=== PATIENT | female | born 1955 | race Caucasian/White ===

== ENCOUNTER → 2020-03-14 11:34 | Outpatient (CLI) | payer OTHER, SELFPAY ==
[2020-03-15 06:30] LABS: COVID19 Sendout Not Detected (Not Detect)
== END ==
PROVIDERS: PCP Family Medicine; Visit Provider Physician Assistant
DX: Z01.812 Encounter for preprocedural laboratory examination (principal)
CPT/HCPCS: 87635

== ENCOUNTER 2020-03-17 05:45 | Inpatient (IN) | payer OTHER, SELFPAY ==
[2020-03-08 11:39] VITALS: BMI 40.7
[2020-03-17] VITALS (14 sets, daily range): BP systolic 120–164; BP diastolic 62–87; PULSE 72–104; RESP 10–21; TEMP 35.8–36.7; O2SAT 90–99; BMI 40.7
[2020-03-17] MEDS: LACTATED RINGERS 1,000 ML 42 ML IV ×2 (07:16→10:18)
--- NOTE | 2020-03-17 07:56 | PM.PREOP ---
Pre-operative Note COVID-19 COVID-19 status: Negative Result date/Date tested (Pos, Neg/Pending): 03/15/20 Interval Note History & Physical reviewed/Exam performed by Physician: Yes Changes to H&P: No
[2020-03-17] MEDS: CEFAZOLIN 2 GM/100 ML FROZ.PIGGY IV ×2 (08:00→15:39)
--- NOTE | 2020-03-17 08:00 | DI.RAD.S_ITS ---
PROCEDURE: XR CERVICAL SPINE 2V OR 3V INDICATIONS: C3-4, C4-5, C5-6 ACDF TECHNIQUE: 2 view(s) of the cervical spine were acquired. COMPARISON: None. FINDINGS: 2 intraoperative fluoroscopy images demonstrate ACDF at C3-C4, C4-C5 and C5-C6. IMPRESSION: ACDF at C3-C4, C4-C5 and C5-C6. Dictated by: Camron Blake M.D. on 03/17/2020 at 11:39 Approved by: Camron Blake M.D. on 03/17/2020 at 11:40
[2020-03-17] MEDS: ACETAMINOPHEN IV 1,000 MG/100 ML VIAL 400 MG IV (08:20)
--- NOTE | 2020-03-17 08:37 | SUR.OPER ---
Supine on padded OR bed, head on gel donut, towel under neck, arm padded and tucked at side, legs uncrossed, safety belt at thigh, tape over blanket over lower legs .
[2020-03-17] MEDS: BUPIVACAINE 0.25% W/ EPI 30 ML VIAL INJ (08:47)
--- NOTE | 2020-03-17 08:55 | CM.DANOTE ---
Discharge Planning/Care Management DCP: assessment: Case received, EMR reviewed. Went to room to check in with pt but she is still in surgery. Pt is a 64 year old female who admitted early this morning for a scheduled spinal/cervical surgery. Surgeon: Dr. Schmid PCP: Keith Samano Payer: [employer] Preferred Pt lives with her Abelardo in [place]. Her pre-op plan was identified as d/c to home. P: DCP team will follow up with pt after surgery to assist with any d/c needs that may arise. CM Discharge Assessment Start: 03/17/20 08:54 Freq: Status: Active Protocol: Document 03/17/20 08:54 ITV (Rec: 03/17/20 08:55 ITV [id number]) Discharge Planning Assessment Advance Directives? Yes History Provided By Medical Record Prior Living Arrangements House Household Members spouse Is patient alert and oriented? Yes Review Status In Process Pre-Anesthesia Assessment Start: 03/08/20 11:39 Freq: Status: Active Protocol: Document 03/08/20 11:39 CAB (Rec: 03/08/20 12:38 CAB [id number]) Pre-Anesthesia Assessment Patient Information Reviewed Via Phone Assessment Assessment Completed With Patient Diagnostic Results CBC Comment Outside CBC only scanned to record-COVID screen @[facility] Primary Care Provider Keith Samano Seen Specialist in Last 12 Months Yes Specialist Seen Orthopedist,Other Comment Pain management, Neurology Primary Language Romansh Height 160.02 cm Weight 104.326 kg Body Mass Index (BMI) 40.7 Hearing Ability Normal Visual Assist Glasses Dentition Type Teeth, Natural Present Barriers to Learning None Hx Anesthesia Reactions Yes: Trouble keeping me sedated, I wake up during surgeries Hx Family Anesthesia Reaction No Hx Malignant Hyperthermia No Hx Blood Transfusions No Anesthesia Review Requested No alcohol intake current alcohol intake frequency holidays/special occasions only Smoking Status Never smoker Substance Use Type does not use Pain Present Pain Reported Musculoskeletal Symptoms Limited Range of Motion,Neck Pain,Radiating Pain into Limb History of Falling (Recent or History of No ) Patient is completely paralyzed or No completely immobile Mental Status Oriented to own ability Is patient on oxygen? No Does patient have OROZCO/SOB No Hx Sleep Apnea No Currently Taking a Beta Miracle No Can You Climb a Flight of Stairs Without Yes SOB Hx Chest Pain No Hx SOB No Hx Syncope or Dizziness No Anti-Coagulant Therapy No Has a Bottling Machine Operator No Cardiac Testing No Hx Pacemaker/ICD No Pacemaker Rep Required? No Cardiac Clearance Received Not Applicable Diet Type At Home Regular dysphagia No Bladder Pattern Frequency,Incontinent,Urgency Urinary Catheter Present No Hx Urinary Self Catheterization No Diabetes No Patient No Lactating No Hx Drug Resistant Organism No Presence of External or Internal Medical Yes: Bilat eye lens Devices Have you had any close contact with No someone diagnosed with COVID-19? Marital Status Lives With spouse Prior Living Arrangements House Support System Spouse Does the Patient Have Assistance After Yes Surgery Patient Discharge Plan Description Return Home Comment Pt not advised on length of stay per surgeon Feels Safe in Current Environment Yes Been Physically Hurt or Threatened By a No Person in Current Environment Do you have thoughts of harming yourself None or others? Are you currently considering suicide? No Do you have a plan to hurt yourself or No Plan others? Do You Have Any Spiritual Beliefs That No May Affect Your HC Choices? Do You Have Any Cultural Practices That No May Affect Your HC Choices? Comment Quaker Who Can We Speak to About Patient's Care Family, friends Identifying Code for Release of Patient Declines to issue Information Health Care Proxy/Next of Kin Abelardo () Health Care Proxy Emergency Contact Name Abelardo () Amilcar (son) Emergency Contact Phone Number Ray: [phone] Amilcar: Advance Directives? Pt unsure Power of Conveyor Attendant Pt unsure PAC Instructions Medications to take/avoid, Nasal antibiotic,No ETOH/ petroleum product on skin DOS, NPO,Pre-surgical wash,Sturdy shoes/comfortable clothes,Do not bring valuables and remove jewelry
--- NOTE | 2020-03-17 11:01 | PM.OP.1 ---
Operative Date/Time/Diagnoses Date of procedure: 03/17/20 Time of procedure: 08:01 Pre-op diagnosis: 1. C3-4, C4-5, C5-6 spinal stenosis 2. C3-4, C4-5, C5-6 spondylosis with radiculopathy Post-op diagnosis: same Procedure & Clinicians Procedure: 1. C3-4, C4-5, C5-6 anterior cervical diskectomy and fusion 2. C3-4, C4-5, C5-6 anterior interbody cage placement 3. C3-4, C4-5, C5-6 anterior instrumentation with plate and screw placement in C3, C4-C5-C6 vertebrae 4. Utilization of microsurgical technique and operating microscope Same procedure as scheduled: Yes Indications: Patient has been having chronic neck pain and worsening cervical radiculopathy. Patient failed multiple conservative management with worsening pain weakness and numbness in her upper extremity. Patient has been having difficulty performing activity of daily living. After discussing risks benefits of treatment options, patient elected proceed with surgery. Surgeon: Benedicto Schmid Powerhouse Electrician Apprentice: Krystle Khalil Click Yes if Unassisted: No Anesthesia Type: General Operative Notes Closure Type: primary Specimen(s): none sent Prosthetic devices, grafts, tissues, transplants, or devices: Globus Extend plate, PEEK cages Applied: catheter Estimated Blood Loss (mL): 10 Blood products transfused: none Procedure in detail: Patient was seen in the preoperative area. Risks and benefits of the surgery was discussed with the patient. Operative consent was obtained and placed in the chart. Patient was then taken to the operative room. Prophylactic antibiotic was given less than 0.5 hr prior to skin incision. General anesthesia was administered. Patient was placed into a supine position on her radiolucent table. Bilateral shoulders were taped down to allow proper C-arm imaging. Anterior cervical area was prepped and draped in a sterile fashion. Time-out was performed at this time. Using lateral C-arm imaging, the level between C3 and C6 was identified and marked on patient's neck. A oblique incision from midline towards medial border of sternocleidomastoid muscle was made. The platysma muscle was incised in line with skin incision. Metzenbaum scissor was used to develop the plane between the medial border of sternocleidomastoid d and the strap muscles medially. The carotid sheath and its contents were identified and protected behind the hand-held retractor during the entire case. The plane between the carotid sheath and strap muscles was developed with Metzenbaum scissors. Dissection was made down to the level of the anterior cervical fascia. Longus colli muscle was incised on the anterior aspect of vertebral bodies bilaterally from C3-C6. Spinal needle was placed into the C3-4 disc space and confirmed with lateral C-arm imaging. Using microsurgical technique and operative microscope, anterior cervical diskectomy was performed at C3-4 C4-5 and C5-6 level. This was done by removing the disc material, removing the anterior and posterior osteophytes posterior longitudinal ligaments along with performing bilateral foraminotomies at all 3 levels. Patient was found to have severe central and foraminal stenosis at all 3 levels. Patient's stenosis was fully decompressed after decompression was completed. After the diskectomy was completed, 3 anterior interbody cages were obtained. The cages were packed with DBM bone grafting material. One cage each along with the bone grafting material was then packed into the interbody spaces from C3-C6 with one cage into each interbody level. After the cages were placed, the anterior cervical plate was stabilized to the C3-C6 vertebrae using 2 screws at each each level. Total 8 screws were placed. After confirming placement of the hardware with AP and lateral C-arm imaging, the screws were locked into the plate using the locking mechanism and torque limiting screwdriver. After the hardware was placed and confirmed with AP and lateral C-arm imaging, the wound was irrigated with sterile normal saline. The platysma muscle and the subcutaneous tissue was closed with 2-0 Vicryl. The skin was closed with 4-0 Monocryl and Steri-Strips. Patient tolerated the procedure well. Patient was transferred recovery room in stable condition. There were no complications. Complications: none Post-operative Condition: stable Disposition: PACU Plan for aftercare: Admit to inpatient hospital
[2020-03-17] MEDS: fentaNYL 100 MCG/2 ML INJ IV ×3 (11:34→11:57)
--- NOTE | 2020-03-17 11:44 | SUR.PHASEI ---
Addendum entered by Frances Elizabeth R.N. 03/17/20 12:21: 1125 Bilateral psychology lecturer strength strong and equal Original Note: 1120 HR irregular, anesthesia record noted stable since ablation. Parker RN attempted to show anesthesia, but was not in the department. left message. HR mostly regularly irregular. 1125 Aroused spontaneously, airway removed. Pt denies pain or nausea. HOB elevated, ice chips given 1134 medicated for pain, patient repeating 'my neck, it hurts' 1140 Anesthesia paged, showed him the rhythm strip. No orders given based on previous history 1142 Pt states that the pain is improved, but still complaining of pain (less frequent complaints). did not give number when asked 1150 dozing quietly. Reponds easily to voice.
[2020-03-17] MEDS: OXYCODONE IR 5 MG TABLET PO (12:00)
[2020-03-17] MEDS: hydrOXYzine 50 MG/ML INJ 25 MG IM (12:04)
--- NOTE | 2020-03-17 12:13 | SUR.PHASEI ---
rates pain 9/10 although FLACC score does not reflect it. Does not respond to question regarding pain level change. repositioned for comfort
--- NOTE | 2020-03-17 12:23 | SUR.PHASEI ---
Addendum entered by Frances Elizabeth R.N. 03/17/20 12:49: Strong mottler operator and LE strength. Original Note: 1120 report called to floor. pt continues to moan, she is not restless, fLACC 11/25
--- NOTE | 2020-03-17 12:31 | SUR.PHASEI ---
preparing to transfer, glasses and clothing bag with patient.
--- NOTE | 2020-03-17 12:46 | SUR.PHASEI ---
1236 to room 210, bed down and locked, call light within reach, clothing/glasses to the room. O2 at 2LNP, SCDs being put on by TECHNICIAN PREVENTATIVE MEDICINE. Continues to moan, status unchanged. Reponsive to voice, barely open eyes when asked to. Requested staff to notify the that she is in the room.
[2020-03-17] MEDS: SODIUM CHLORIDE 0.9% 1,000 ML 100 ML IV (13:06)
[2020-03-17] MEDS: GABAPENTIN 300 MG CAPSULE PO ×2 (13:06→20:17)
[2020-03-17] MEDS: HYDROMORPHONE 0.5 MG INJ 0.2 MG IV ×2 (13:10→20:01)
[2020-03-17] MEDS: OXYCODONE IR 10 MG TABLET PO ×3 (13:19→21:04)
--- NOTE | 2020-03-17 13:28 | PC.ADMIT ---
[email or web address] Admission Note: The patient,Madyson Martinez,64 y/o, was given written information regarding hospital policies, unit procedures and contact persons. Patient's smoking status: Never smoker. Vital Signs - 8 hr 03/17/20 07:00 03/17/20 11:12 03/17/20 11:23 Temperature 96.4 F L 97.8 F Pulse Rate 72 92 H 104 H Respiratory Rate 16 10 L 11 L Blood Pressure 143/81 H 138/68 150/63 H Pulse Oximetry 96 90 L 95 03/17/20 11:33 03/17/20 11:43 03/17/20 11:53 Temperature 97.7 F Pulse Rate 99 H 94 H 94 H Respiratory Rate 10 L 12 12 Blood Pressure 143/69 H 147/75 H 123/62 Pulse Oximetry 95 95 95 03/17/20 12:07 03/17/20 12:22 Temperature 96.8 F L Pulse Rate 94 H 101 H Respiratory Rate 15 11 L Blood Pressure 153/79 H 141/87 H Pulse Oximetry 94 93 PATIENT CAME UP TO FROM PACU MOANING, EYEBROWS KNITTED. RATES PAIN 10/10 PAIN. GIVEN 0.2MG IVP DILAUDID. GIVEN 10MG PO OXYCODONE. GIVEN NOON PRN GABAPENTIN. PROVIDED ICE PACK. SCD'S ON. TOO PAINFUL TO ATTEMPT I.S. TEACHING OR PERFORM THOROUGH SKIN CHECK AT THIS TIME. ANTERIOR SKIN CDI W/ SURGICAL DRSG TO ANTERIOR NECK W/ GAUZE AND TEGADERM CDI. SOFT COLLAR LOOSENED TO APPLY ICE PACK.
[2020-03-17] MEDS: IBUPROFEN 400 MG TABLET PO (13:45)
--- NOTE | 2020-03-17 14:01 | PC.NURSE ---
PAIN: PATIENT MOANING, CALLING OUT OWW, OWWW OVER AND OVER. RATES PAIN 10/10 TO NECK AND HEAD DESPITE TOTAL 15MG OXYCODONE (5MG IN RECOVERY) (10MG IN ACUTE CARE), IBUPROFEN, 0.2MG IVP DILAUDID, GABAPENTIN AND 15MG VISTARIL IN RECOVERY. AND ICE PACK. STATES PAIN NOT IMPROVED PAIN REMAINS 10/10. CALLED TO DR. MARS, NOTIFIED OF ABOVE. GIVE 1MG IV DILAUDID NOW AND 5MG IV VALIUM
[2020-03-17] MEDS: diazePAM 10 MG/2 ML SYRINGE 5 MG IV (14:16)
--- NOTE | 2020-03-17 15:13 | PT-IP ANOTE ---
pt just had surgery this morning and nurse stated that pt has problems with pain control and is still on a lot of pain and nurse is trying to manage her pain better and will not be ready for PT. will f/u tomorrow.
[2020-03-17] MEDS: HYDROMORPHONE 2 MG INJ 1 MG IV (15:18)
[2020-03-17] MEDS: hydrOXYzine pamoate 25 MG CAPSULE PO (17:48)
[2020-03-17] MEDS: DOCUSATE 100 MG CAPSULE PO (20:17)
[2020-03-17] MEDS: BACLOFEN 10 MG TABLET 60 MG PO (20:17)
[2020-03-17] MEDS: SENNOSIDES 8.6 MG TABLET 17.2 MG PO (20:17)
[2020-03-17] MEDS: carBAMazepine 200 MG TABLET 300 MG PO (20:17)
[2020-03-17] MEDS: ACYCLOVIR 400 MG TABLET PO (20:24)
[2020-03-18] VITALS (8 sets, daily range): BP systolic 112–161; BP diastolic 63–102; PULSE 76–90; RESP 16–18; TEMP 36.3–37.6; O2SAT 89–96
[2020-03-18] MEDS: CEFAZOLIN 2 GM/100 ML FROZ.PIGGY IV (00:24)
[2020-03-18] MEDS: SODIUM CHLORIDE 0.9% 1,000 ML 100 ML IV (00:25)
[2020-03-18] MEDS: OXYCODONE IR 10 MG TABLET PO ×7 (00:30→21:10)
[2020-03-18] MEDS: hydrOXYzine pamoate 25 MG CAPSULE PO ×3 (04:53→23:19)
[2020-03-18] MEDS: IBUPROFEN 400 MG TABLET PO (06:05)
[2020-03-18] MEDS: ACETAMINOPHEN 325 MG TABLET 650 MG PO ×2 (06:06→13:10)
--- NOTE | 2020-03-18 07:47 | OT.IP.EVAL ---
Current Diagnoses Other spondylosis with myelopathy, cervical region (03/17/20) Spinal stenosis, cervical region (03/17/20) Surgery Performed Operation Date: 03/17/20 07:45 Actual Procedures p C3-4, C4-5, C5-6 ACDF w. anterior instrumentation - Benedicto Schmid MD Past Medical History (Last Updated 03/17/20 @ 07:20 by Frances Elizabeht, SOILA) Acute lacunar infarction (Acute) Arthritis (Acute) Borderline high cholesterol (Acute) Cervical cancer (Acute ~1984) Cervical stenosis of spinal canal (Acute) DVT (deep venous thrombosis) (Acute ~2018) Edema (Acute) Herniated nucleus pulposus with myelopathy, cervical (Acute) History of CVA (cerebrovascular accident) (Acute) History of headache (Acute) History of UTI (Acute) Lacunar infarction (Acute) Morbid obesity due to excess calories (Acute) Multiple sclerosis (Acute 03/1993) Port-A-Cath in place (Acute) Urinary incontinence (Acute) Surgical History (Last Updated 03/08/20 @ 12:29 by Margarita Herring RN) History of radiofrequency ablation (RFA) procedure for cardiac arrhythmia (Acute) History of surgery (Acute) Hx of bilateral cataract extraction (Acute) Hx of cholecystectomy (Acute) Hx of detached retina repair (Acute) Occupational Therapy Inpatient Evaluation/Re-Eval M1 PT/OT-IP Prior Functional Status Start: 03/18/20 10:23 Freq: NEEDED Status: Active Protocol: Document 03/18/20 10:23 [facility] (Rec: 03/18/20 10:43 [facility] [id number]) Medical Review Prior Functional Status Communication Independent Mobility and Gait Independent with no devices. Activities of Daily Living and IADL's Pt completely independent with all ADl and IADl needs. Social History Household Members spouse Living Arrangements House Number of Floors (Floors) One Floor Number of Stairs To Enter/Railing? 2 steps with wide rails and use of right rail to go up. Home Environment High Toilet,Tub/Shower Home Equipment Front Wheel Walker,Straight Cane Additional Social History Comment Pt states has an adjustable bed. M2 OT-IP Current Condition Start: 03/18/20 10:23 Freq: Status: Active Protocol: Document 03/18/20 10:23 [facility] (Rec: 03/18/20 10:43 [facility] [id number]) Occupational Therapy Current Condition Current Condition Evaluation Date 03/18/20 Treatment Diagnosis Spinal stenosis s/p C3-4, C4-5 , C 5-6 ACDF Diagnosis Onset Date 03/17/20 Post Operative Precautions Cervical Spine Precautions Soft Collar for Comfort,No Heavy Lifting,Log Roll M3 OT- IP Subjective and Pain Start: 03/18/20 10:23 Freq: Status: Active Protocol: Document 03/18/20 10:23 [facility] (Rec: 03/18/20 10:43 [facility] [id number]) OT- Subjective Occupational Therapy Visit Type Type Initial Evaluation Visit Start Time 07:47 Visit Stop Time 08:42 Total Visit Minutes 55 Occupational Therapy Visit Comments Patient Comments Pt already up in the recliner and agreed to do OT eval. Patient/Caregiver Goals To go home. OT Pain Assessment Pain When Pain Assessed At Rest Pain Present Pain Present Pain Reported Location neck Intensity 7 Scale Used Numeric (0 - 10) M4 OT- IP ADL's Start: 03/18/20 10:23 Freq: Status: Active Protocol: Document 03/18/20 10:23 [facility] (Rec: 03/18/20 10:43 [facility] [id number]) OT TTG-Mlep-Nmdrlcn General Evaluation Self-Feeding Ability Standby Assistance Comments OT Self-Feeding Comments Pt given information and educated for swallowing needs after ACDF. GRIPS also there for part of the session to reiterate swallowing needs. Emphasized for pt to sit upright as initially not upright and coughing while drinking the water. OT ADL-Grooming General Evaluation Areas Needing Assistance Retrieving/Set-up of Grooming Items Comments OT Grooming Comments VC tp lean over at the sink to spit or into a cup. OT ADL-Oral Care General Eval Oral Care Ability Independent OT ADL-Dressing General Eval Lower Body Dressing Ability Maximum Assistance Comments OT Dressing Comments MAX A for socks, pt states will assist for all her ADl needs as needed. Able to show pt LB dressing equipment and states will just have assist with needs. Pt needing assist to help kai/doff the soft collar due to decreased AROM of right arm at this time after sx. OT ADL-Toileting Comments OT Toileting Comments [place]uesada still in. OT ADL-Bathing Comments OT Bathing Comments Pt able to sponge off a little while changing out her gown. Suggested that pt may benefit from a shower chair. M5 OT- IP IADL's Start: 03/18/20 10:23 Freq: Status: Active Protocol: Document 03/18/20 10:23 [facility] (Rec: 03/18/20 10:43 [facility] [id number]) OT-Instrumental Activities of Daily Living Home Safety Awareness Awareness of Need for Assistance at Home Good Awareness Ability to Problem Solve Emergency Able to Problem Solve Situations Medication Management Medication Management No Deficits Identified Money Management Money Management Caregiver Provides Assistance Meal Preparation Meal Preparation Caregiver Provides Assist Adolescent Coordinator Adolescent Coordinator Caregiver Provides Assist M6 OT- IP Functional Cognition Start: 03/18/20 10:23 Freq: Status: Active Protocol: Document 03/18/20 10:23 [facility] (Rec: 03/18/20 10:43 [facility] [id number]) Cognitive Factors Limiting Selfcare Function Cognitive Ability Level of Alertness Alert Patient Orientation Name,Age,Birthday,Month,Date, Year,Day of Week,Place, Situation Attention Span Ability Capable of Focused Attention Ability to Follow Commands Able to Follow Multi-Step Commands Memory Description No Deficits Noted Safety Awareness Decreased Ability to Apply Precautions Executive Function Ability No Deficits Noted Cognitive Comments Cognitive Assessment Comments Pt just mainly needing reminders to do log rolling versus sit up into long sitting so not place as much pressure on he neck. OT- Vision and Hearing OT- Hearing Assessment OT- Hearing Assessment WFL OT- Vision Assessment Visual Acuity Glasses All The Time M7 OT- IP Mobility and Balance Start: 03/18/20 10:23 Freq: Status: Active Protocol: Document 03/18/20 10:23 [facility] (Rec: 03/18/20 10:43 [facility] [id number]) OT- Bed Mobility Assessment Sit to Supine Sit to Supine Assist Contact Guard Assistance OT-Transfer Assessment Sit to and From Stand Sit to and from Stand Standby Assistance Transfers Transfer Ability Standby Assistance Technique Transfer Destination Bed,Chair Devices Transfer Assistive Devices Gait Belt,Front Wheeled Walker Comments Mobility Comments CGA to help get her legs into the bed. VC for log rolling technique. Pt SBA with FWW and getting times after doing grooming needs at the sink and needing to go back to bed. OT- Gait Assessment Comments Gait Ability Comments CGA to SBA with FWW to the sink and then back to bed. OT- Balance Assessment Sitting Balance and Reactions Static Sitting Balance Ability Normal Dynamic Sitting Balance Ability Good Standing Balance and Reactions Static Standing Balance Ability Good M8 OT- IP Objective Assessments Start: 03/18/20 10:23 Freq: Status: Active Protocol: Document 03/18/20 10:23 [facility] (Rec: 03/18/20 10:43 [facility] [id number]) OT Gross Range of Motion Upper Extremity Range of Motion Assessment Right Impaired OT Strength Upper Extremity Strength Assessment Right Impaired Shoulder 3-/5 Elbow 4- Forearm 4- Wrist 4- Hand 4- OT-Muscle Tone Assessment Muscle Tone WNL Yes M9 OT- IP Assessment and Plan Start: 03/18/20 10:23 Freq: Status: Active Protocol: Document 03/18/20 10:23 [facility] (Rec: 03/18/20 10:43 [facility] [id number]) OT Summary Assessment and Plan Potential Rehabilitation Potential Good Analytic Complexity at Evaluation Low Summary OT Impairments Pain,Functional Mobility,Self- Feeding,Dressing,Toileting, Bathing,Toilet Transfers, Shower Transfers,Activity Tolerance Progress Towards Goals Slow Progress due to Pain,Slow Progress due to Activity Tolerance Assessment Summary Pt low complexity s/p C3-4, c4 -5, C5-6 ACDF and main barriers are pain, steps and now needing more assist for ADl needs due to RUE decreased AROM and strength. Pt states her will be able to assist her for all needs at home. Suggested use of shower chair for shower, pt states will initially just sponge off . Pt in bed at the end of the session and ice pack given for her neck. Pt to go home with assist when medically stable. Goals Self-Feeding Goal Independent Grooming Goal Independent Dressing Goal Minimal Assistance Toileting Goal Minimal Assistance Bathing Goal Minimal Assistance Toilet Transfer Goal Independent Shower Transfer Goal Independent Patient/Caregiver Education Goal Demonstrate Post-Op Precautions,Caregiver Independent Assisting Patient Days to Meet Goals 2 Frequency of Treatment Frequency Of Treatment Once a Day Treatment Plan OT Treatment Plan ADL Training,Functional Mobility,Patient/Family Education,Discharge Planning Other Treatment Recommendations and Next Shower if still here. Treatment Focus Discharge Recommendations OT Discharge Recommendations Home with Assistance Home Equipment Needs Shower chair Transportation Needs at Discharge Private Vehicle
[2020-03-18] MEDS: DOCUSATE 100 MG CAPSULE PO ×2 (08:06→21:10)
[2020-03-18] MEDS: GABAPENTIN 300 MG CAPSULE PO ×2 (08:06→21:09)
[2020-03-18] MEDS: BACLOFEN 10 MG TABLET 20 MG PO (08:06)
[2020-03-18] MEDS: SOLIFENACIN 5 MG TABLET 10 MG PO (08:07)
[2020-03-18] MEDS: carBAMazepine 200 MG TABLET 300 MG PO ×2 (08:07→21:16)
[2020-03-18] MEDS: SODIUM CHLORIDE 0.9% FLUSH 10 ML IV ×4 (08:07→21:10)
[2020-03-18] MEDS: ACYCLOVIR 400 MG TABLET PO ×2 (08:09→21:18)
--- NOTE | 2020-03-18 08:27 | SLP.IPNOTE ---
Patient seen for swallow screen following ACDF surgery. Patient reported no swallowing difficulties (e.g., choking, coughing) except for a sore throat, which is common after ACDF surgery. INSURANCE LAW SPECIALIST observed patient swallowing multiple medications/pills with carrier and eating several bites of fruit for breakfast. Patient presented with no overt s/sx of aspiration. Patient is safe to continue with current diet. INSURANCE LAW SPECIALIST provided patient with ACDF handout and reviewed handout in detail with patient. INSURANCE LAW SPECIALIST placed ACDF handout on patient's table. Amy Soliman MS, CF-INSURANCE LAW SPECIALIST.
--- NOTE | 2020-03-18 09:15 | PT.IIE ---
Current Diagnoses Other spondylosis with myelopathy, cervical region (03/17/20) Spinal stenosis, cervical region (03/17/20) Surgery Performed Operation Date: 03/17/20 07:45 Actual Procedures p C3-4, C4-5, C5-6 ACDF w. anterior instrumentation - Benedicto Schmid MD Surgical History (Last Updated 03/08/20 @ 12:29 by Margarita Herring, RN) History of radiofrequency ablation (RFA) procedure for cardiac arrhythmia (Acute) History of surgery (Acute) Hx of bilateral cataract extraction (Acute) Hx of cholecystectomy (Acute) Hx of detached retina repair (Acute) Medical History (Last Updated 03/17/20 @ 07:20 by Frances Elizabeth RN) Acute lacunar infarction (Acute) Arthritis (Acute) Borderline high cholesterol (Acute) Cervical cancer (Acute ~1984) Cervical stenosis of spinal canal (Acute) DVT (deep venous thrombosis) (Acute ~2018) Edema (Acute) Herniated nucleus pulposus with myelopathy, cervical (Acute) History of CVA (cerebrovascular accident) (Acute) History of headache (Acute) History of UTI (Acute) Lacunar infarction (Acute) Morbid obesity due to excess calories (Acute) Multiple sclerosis (Acute 03/1993) Port-A-Cath in place (Acute) Urinary incontinence (Acute) Physical Therapy Inpatient Evaluation/Re-Eval M1 PT/OT-IP Prior Functional Status Start: 03/18/20 10:23 Freq: NEEDED Status: Active Protocol: Document 03/18/20 10:23 [facility] (Rec: 03/18/20 10:43 [facility] [id number]) Medical Review Prior Functional Status Communication Independent Mobility and Gait Independent with no devices. Activities of Daily Living and IADL's Pt completely independent with all ADl and IADl needs. Social History Household Members spouse Living Arrangements House Number of Floors (Floors) One Floor Number of Stairs To Enter/Railing? 2 steps with wide rails and use of right rail to go up. Home Environment High Toilet,Tub/Shower Home Equipment Front Wheel Walker,Straight Cane Additional Social History Comment Pt states has an adjustable bed. M1 PT/OT-IP Prior Functional Status Start: 03/18/20 11:55 Freq: NEEDED Status: Active Protocol: Document 03/18/20 09:15 AB (Rec: 03/18/20 12:06 AB [email or web address]) Medical Review Prior Functional Status Medical History Reviewed Yes Communication able to make needs known Mobility and Gait stated that she is independent with all mobilities and ambulation without AD Activities of Daily Living and IADL's per OT's note Pt completely independent with all ADl and IADl needs. Social History Household Members spouse Living Arrangements House Number of Floors (Floors) One Floor Number of Stairs To Enter/Railing? 2 steps with wide rails and can only use one rail at a time Home Environment High Toilet,Tub/Shower Home Equipment Front Wheel Walker,Straight Cane,Grab Bars In Shower Additional Social History Comment pt stated that she has an adjustable bed M2 PT-IP Current Condition Start: 03/18/20 11:55 Freq: NEEDED Status: Active Protocol: Document 03/18/20 09:15 AB (Rec: 03/18/20 12:06 AB [id number]) Physical Therapy Current Condition Current Condition Evaluation Date 03/18/20 Treatment Diagnosis s/p C3-6 ACDF; difficulty in walking Onset Date 03/17/20 Precautions Cervical Spine Precautions Soft Collar for Comfort,No Heavy Lifting,Log Roll M3 PT-IP Subjective Start: 03/18/20 11:55 Freq: NEEDED Status: Active Protocol: Document 03/18/20 09:15 AB (Rec: 03/18/20 12:06 AB [email or web address]) Subjective Physical Therapy Visit Type Type Initial Evaluation Visit Start Time 09:15 Visit Stop Time 09:46 Total Visit Minutes 31 Number of BRAILLE TRANSCRIBER Visits 0 Physical Therapy Visit Comments Patient Comments pt is agreeable to do PT Therapy Pain Assessment Pain When Pain Assessed At Rest Pain Present Pain Present Pain Reported Location neck Intensity 8 Scale Used Numeric (0 - 10) Pain Management Techniques Apply Cold,Distraction,Re- positioning,Timing of Activity with Medications M4 PT-IP Mobility and Gait Start: 03/18/20 11:55 Freq: NEEDED Status: Active Protocol: Document 03/18/20 09:15 AB (Rec: 03/18/20 12:06 AB [id number]) PT-Bed Mobility Assessment Supine to Sit Supine to Sit Standby Assistance,Head of Bed Elevated PT-Transfer Assessment Sit to and From Stand Sit to and from Stand Contact Guard Assistance,1 Person Assistance,Use of Upper Extremities Equipment Transfer Assistive Device Gait Belt,Front Wheeled Walker Orthotic/Prosthetic Devices or Brace: No Transfers Transfer Destination Chair Transfer Technique ambulated using FWW Transfer Ability Level of Assist Contact Guard Assistance Comments Mobility Comments reviewed cervical precautions. pt stated that she has used soft collar for 4 months and has no problem managing it and spouse also can assist. pt has an adjustable bed at home and usually has HOB elevated to get out of bed. completed supine to sit SBA with HOB elevated. c/o increas pain. completed sit to stand CGA and ambulated in room ~ 20 ft. refused further ambulation. agreed to sit up on chair. positioned pt on chair. call light and table placed within reach. Gait Assessment Gait Gait Assistance Required: Contact Guard Assist Distance (Feet) 20 Able to Maintain Weight Bearing Status Yes During Gait Assistive Devices Assistive Device Gait Belt,Front Wheeled Walker Orthotic/Prosthetic Devices or Brace: No Gait Deviations General Gait Pattern Antalgic,Decreased Stride Length,Decreased Feet Clearance,Step-to Gait Factors Limiting Gait Function Factors Limiting Gait Function Decreased Activity Tolerance, Decreased Strength,Limited Range of Motion,Pain PT-Balance Assessment Sitting Balance and Reactions Static Sitting Balance Ability Good Dynamic Sitting Balance Ability Good Standing Balance and Reactions Static Standing Balance Ability Fair Dynamic Standing Balance Ability Fair Device Used FWW M5 PT-IP Objective Assessments Start: 03/18/20 11:55 Freq: NEEDED Status: Active Protocol: Document 03/18/20 09:15 AB (Rec: 03/18/20 12:06 AB [email or web address]) Orientation Orientation/Cognition Level of Alertness Alert Orientation Name,Place,Situation Safety Awareness Understands Safety Issues Memory Description No Deficits Noted Gross Range of Motion Lower Extremity ROM Assessment Within Functional Limits Strength Comments Strength Comments LLE: 4-/5 RLE: 3+/5 Muscle Tone Muscle Tone WNL Yes M6 PT-IP Treatment Start: 03/18/20 11:55 Freq: NEEDED Status: Active Protocol: Document 03/18/20 09:15 AB (Rec: 03/18/20 12:06 AB [email or web address]) Physical Therapy Treatment Education Education Provided Precautions,Safety M7 PT-IP Assessment and Plan Start: 03/18/20 11:55 Freq: NEEDED Status: Active Protocol: Document 03/18/20 09:15 AB (Rec: 03/18/20 12:06 AB [email or web address]) PT Summary Assessment and Plan Potential Rehabilitation Potential Good Status of Condition at Evaluation Evolving Summary Impairments Pain,ROM,Strength,Balance, Coordination,Sensation,Tone, Cognition,Bed Mobility, Transfers,Gait,Activity Tolerance Assessment Summary pt requiring CGA wit mobility and unable to tolerate much activity with c/o increase cervical pain. pt plans to go home and spouse will be able to assist her. will continue to assess progress. Goals Bed Mobility Goal Independent Transfer Goal Independent,Front Wheeled Walker Gait Goal Independent,Front Wheel Walker Gait Distance 150 Other Goals up/down 2 steps 1 rail SBA Days to Meet Goals 3 Frequency of Treatment Frequency Of Treatment Twice a Day Treatment Plan Physical Therapy Treatment Plan Bed Mobility Training,Transfer Training,Gait Training, Therapeutic Exercise,Balance Retraining,Post Op Education, Discharge Planning,Hot or Cold Pack,Neuromuscular Re-ed, Coordination Retraining,Manual Therapy Other Recommendations and Next Treatment stair climbing, ambulation Focus Recommendations To Nursing Amount of Assist Needed 1 Person Assist Discharge Recommendations PT Discharge Recommendations Home with Assistance Transportation Needs at Discharge Private Vehicle
--- NOTE | 2020-03-18 10:02 | DI.CT.S_ITS ---
PROCEDURE: CT CERVICAL SPINE WO CON INDICATIONS: right UE weakness TECHNIQUE: Noncontrast 3 mm thick sections acquired from the skull base to the T4 level. Sagittal and coronal reformats were then constructed. For radiation dose reduction, the following was used: automated exposure control, adjustment of mA and/or kV according to patient size. COMPARISON: [facility], , MRI C-SPINE W/WO CONTRAST, 01/09/2016, 10:00. [facility], RG, MRI C-SPINE W/WO CONTRAST, 08/19/2019, 15:57. [facility], CR, XR CERVICAL SPINE 2V OR 3V, 03/17/2020, 8:32. FINDINGS: Image quality: Excellent. Bones: No fractures or dislocations. Visualized superior ribs are intact. Postoperative changes are seen, with an anterior fixation plate C3 through C6. The fusion plate appears well seated. Disc spacers are seen at C3-C4, C4-C5, and C5-C6. No findings of hardware failure or hardware loosening are seen. At least moderate disc space narrowing is seen at C6-C7. Bridging anterior osteophytes are seen at C6-C7. At least moderate central canal narrowing can be seen at the C4-C5, C5-C6, and C6-C7 levels. Soft tissues: Soft tissue postoperative changes are seen, with an expected amount of soft tissue gas. No large postoperative hematoma can be seen. Prevertebral soft tissues are normal in thickness. No paravertebral hematomas. No apical pneumothoraces. IMPRESSION: Recent postoperative change, with a normal appearing fixation plate anteriorly at C3 through C6. No toma postoperative complication can be seen. If it would be helpful for clinical management decision making, please consider a dedicated cervical spine MRI for further evaluation (assuming that there is no contraindication). Dictated by: Shiva Longoria M.D. on 03/18/2020 at 9:41 Approved by: Shiva Longoria M.D. on 03/18/2020 at 9:44
--- NOTE | 2020-03-18 10:03 | PM.PNPO.1 ---
Subjective Subjective Date Patient Seen: 03/18/20 Time Patient Seen: 10:04 Interval history: Patient's pain is moderate to severe. Denies fever chills. No nausea vomiting. No difficulty swallowing. She was able to the have some applesauce this morning. She states she is having difficulty raising her right arm. Exam Vital Signs (past 8 hours): - 03/18/20 04:45 03/18/20 07:55 Temperature 97.9 F Pulse Rate 84 Respiratory Rate 18 Blood Pressure 128/63 Pulse Oximetry 89 L 96 Oxygen Delivery Method Room Air Oxygen Flow Rate 0 Narrative Exam Narrative: 64-year-old female sitting comfortably in bedside chair in no apparent distress. Soft collar is on. Cervical dressing is clean, dry and intact. Left are motor function in sensations intact. Patient unable to abduct or forward flex right upper extremity. She is able to extend the elbow with significant weakness. Unable to flex upper arm. Unable to extend wrist but minimal ability to flex wrist. She is able to wiggle all fingers. Sensation was intact to the distal right upper extremity. Some numbness over the lateral deltoid. Right arm is warm and dry. Assessment & Plan Post-op Postoperative Procedures: Procedures Operation Date: 03/17/20 07:45 Actual Procedures Side Surgeon p C3-4, C4-5, C5-6 ACDF w. anterior instrumentation Benedicto Schmid MD 3 level cervical diskectomy and fusion. Talked with Dr. Irma wells recommended a CT without contrast. Start Decadron. Patient will receive 10 mg IV Decadron now and in 6 hours she will receive 4 mg every 6 hours for 4 doses. Soft collar. Mobilize with physical therapy. Limit bending, twisting, lifting.
[2020-03-18] MEDS: HYDROMORPHONE 0.5 MG INJ 0.2 MG IV ×3 (10:16→18:19)
[2020-03-18] MEDS: DEXAMETHASONE 10 MG/ML VIAL IV (10:52)
--- NOTE | 2020-03-18 10:52 | CM.DPC ---
DCP Cont: Checked in with patient, , Abelardo, was also present in room. Introduced self and role. Patient was sitting up in her chair. She was wearing neck brace, and was assisting her with pillows behind her neck. Patient is pleasant, alert and oriented. Patient resides in [place] with her spouse, Abelardo, who will be assisting patient for any needs when she goes home. Patient still drives, but has not lately, due to her neck discomfort and limited range of motion prior to surgery. They have grown children, but not locally. One of their sons lives in [place], [place]. P: DCP to continue to follow and will be available for any needs at discharge. Patient should be able to go home when she is medically stable. Jessie Reich RN/Non Destructive Testing Supervisor
--- NOTE | 2020-03-18 14:40 | PT.IPTN ---
Current Diagnoses Other spondylosis with myelopathy, cervical region (03/17/20) Spinal stenosis, cervical region (03/17/20) Surgery Performed Operation Date: 03/17/20 07:45 Actual Procedures p C3-4, C4-5, C5-6 ACDF w. anterior instrumentation - Benedicto Schmid MD Physical Therapy Treatment Note M2 PT-IP Current Condition Start: 03/18/20 11:55 Freq: NEEDED Status: Active Protocol: Document 03/18/20 09:15 AB (Rec: 03/18/20 12:06 AB [email or web address]) Physical Therapy Current Condition Current Condition Evaluation Date 03/18/20 Treatment Diagnosis s/p C3-6 ACDF; difficulty in walking Onset Date 03/17/20 Precautions Cervical Spine Precautions Soft Collar for Comfort,No Heavy Lifting,Log Roll M3 PT-IP Subjective Start: 03/18/20 11:55 Freq: NEEDED Status: Active Protocol: Document 03/18/20 14:40 AB (Rec: 03/18/20 16:12 AB [email or web address]) Subjective Physical Therapy Visit Type Type Treatment Note Visit Start Time 14:40 Visit Stop Time 15:14 Total Visit Minutes 34 Number of MILKER MACHINE Visits 0 Physical Therapy Visit Comments Patient Comments pt is agreeable to do PT Therapy Pain Assessment Pain When Pain Assessed At Rest Pain Present Pain Present Pain Reported Location neck Intensity 5 Scale Used increased to 7/10 during mobility Pain Management Techniques Apply Cold,Distraction,Timing of Activity with Medications M4 PT-IP Mobility and Gait Start: 03/18/20 11:55 Freq: NEEDED Status: Active Protocol: Document 03/18/20 14:40 AB (Rec: 03/18/20 16:12 AB [email or web address]) PT-Transfer Assessment Sit to and From Stand Sit to and from Stand Contact Guard Assistance,1 Person Assistance Equipment Transfer Assistive Device Gait Belt,Front Wheeled Walker Orthotic/Prosthetic Devices or Brace: No Transfer Ability Level of Assist Contact Guard Assistance Comments Mobility Comments pt's spouse in room and agreeable to do caregiver training. educated on use of safety belt and how to assist pt. spouse was able to put safety belt on pt and assisted pt with ambulation in room and the hallway. completed up/down steps using R rail and spouse was also able to assist pt safety. pt ambulated back to her room using FWW CGA. pt wants to stay up on chair. positioned on chair. call light and table within reach. Gait Assessment Gait Gait Assistance Required: Standby Assistance,Contact Guard Assist Distance (Feet) 125 Able to Maintain Weight Bearing Status Yes During Gait Assistive Devices Assistive Device Gait Belt,Front Wheeled Walker Orthotic/Prosthetic Devices or Brace: No Gait Deviations General Gait Pattern Antalgic,Decreased Stride Length,Decreased Feet Clearance Factors Limiting Gait Function Factors Limiting Gait Function Decreased Activity Tolerance, Decreased Strength,Limited Range of Motion,Pain,Poor Balance,Poor Safety Awareness Comments Gait Comments pls refer to mobility section completed ambulation using FWW 75+125+40 ft CGA Stair Climbing Assessment Evaluation Level of Assist On Stairs Contact Guard Assistance, Minimal Assistance,1 Person Assistance Devices Stair Climbing Assistive Devices Right Railing Technique/Endurance Stair Climbing Direction Ascend and Descend Stair Climbing Technique Step to Step Number of Steps Climbed 3 Stair Climbing Set # Repetitions (reps) 1 M5 PT-IP Objective Assessments Start: 03/18/20 11:55 Freq: NEEDED Status: Active Protocol: Document 03/18/20 09:15 AB (Rec: 03/18/20 12:06 AB [email or web address]) Orientation Orientation/Cognition Level of Alertness Alert Orientation Name,Place,Situation Safety Awareness Understands Safety Issues Memory Description No Deficits Noted Gross Range of Motion Lower Extremity ROM Assessment Within Functional Limits Strength Comments Strength Comments LLE: 4-/5 RLE: 3+/5 Muscle Tone Muscle Tone WNL Yes M6 PT-IP Treatment Start: 03/18/20 11:55 Freq: NEEDED Status: Active Protocol: Document 03/18/20 14:40 AB (Rec: 03/18/20 16:12 AB [email or web address]) Physical Therapy Treatment Education Education Provided Precautions,Safety M7 PT-IP Assessment and Plan Start: 03/18/20 11:55 Freq: NEEDED Status: Active Protocol: Document 03/18/20 14:40 AB (Rec: 03/18/20 16:12 AB [email or web address]) PT Summary Assessment and Plan Potential Rehabilitation Potential Good Summary Impairments Pain,ROM,Strength,Balance, Coordination,Sensation,Bed Mobility,Transfers,Gait, Activity Tolerance Progress Towards Goals Progressing Toward Goals Assessment Summary pt is progressing well with mobility but continues to c/o increase neck pain. caregiver training conducted and spouse was able to assist pt safely. pt may go home when medically stable. Goals Bed Mobility Goal Independent Transfer Goal Independent,Front Wheeled Walker Gait Goal Independent,Front Wheel Walker Gait Distance 150 Other Goals up/down 2 steps 1 rail SBA Days to Meet Goals 3 Frequency of Treatment Frequency Of Treatment Twice a Day Treatment Plan Physical Therapy Treatment Plan Bed Mobility Training,Transfer Training,Gait Training, Therapeutic Exercise,Balance Retraining,Post Op Education, Discharge Planning,Hot or Cold Pack,Neuromuscular Re-ed, Coordination Retraining,Manual Therapy Other Recommendations and Next Treatment stair climbing, ambulation Focus Recommendations To Nursing Amount of Assist Needed 1 Person Assist Discharge Recommendations PT Discharge Recommendations Home with Assistance Transportation Needs at Discharge Private Vehicle
--- NOTE | 2020-03-18 15:25 | PC.NURSE ---
Shift summary: Alert and oriented X3. 1-person assist with FWW. Dressing to anterior neck C/D/I, wearing soft collar off and on for comfort. Reported new-onset weakness w/ lateral numb/tingling of RUE (not present prior to surgery) that NIRANJAN Travis, and Dr Schmid, are both aware of. Had a CT done to evaluate and NIRANJAN Travis was able to look at results before he left. Patient started on Dexamethasone today and tolerated first dose without issue. Given Oxycodone, Tylenol for neck/shoulder pain, w/ IV Dilaudid given X1 for breakthrough pain after working with therapy. Resting in chair. Belongings and call light within reach, patient calls appropriately for assist with ambulation.
[2020-03-18] MEDS: DEXAMETHASONE 4 MG/ML VIAL IV ×2 (15:50→21:09)
[2020-03-18] MEDS: SENNOSIDES 8.6 MG TABLET 17.2 MG PO (21:09)
[2020-03-18] MEDS: BACLOFEN 10 MG TABLET 60 MG PO (21:10)
[2020-03-19] MEDS: MELATONIN 3 MG TABLET PO (01:34)
[2020-03-19 03:50] VITALS: BP 120/55; PULSE 88; RESP 18; TEMP 37.3; O2SAT 93
[2020-03-19] MEDS: DEXAMETHASONE 4 MG/ML VIAL IV ×2 (03:50→09:33)
[2020-03-19] MEDS: SODIUM CHLORIDE 0.9% FLUSH 10 ML IV ×2 (03:50→09:34)
--- NOTE | 2020-03-19 05:19 | PC.NURSE ---
Resuscitation not ordered. Asked patient her wishes and she stated she was full code.
[2020-03-19] MEDS: hydrOXYzine pamoate 25 MG CAPSULE PO (06:49)
[2020-03-19] MEDS: OXYCODONE IR 10 MG TABLET PO ×2 (06:49→10:47)
--- NOTE | 2020-03-19 08:19 | PM.PNPO.1 ---
Subjective Subjective Date Patient Seen: 03/19/20 Time Patient Seen: 08:19 Interval history: Pain in the neck and shoulders is about 7/10. No arm pain. The rest of her arms are feeling stronger but she still cannot elevate the right shoulder Exam Vital Signs (past 8 hours): - 03/19/20 03:50 Temperature 99.2 F Pulse Rate 88 Respiratory Rate 18 Blood Pressure 120/55 L Pulse Oximetry 93 Oxygen Delivery Method Room Air Oxygen Flow Rate 0 Const Orientation: alert and oriented x3 Back/Spine/Pelvis Other: CDI. 5/5 motor both upper extremities except 1/5 right deltoid Objective Imaging CT cervical spine: My impression: From 03/18/2020 shows ACDF from C3 through 6. Limited as this is a noncontrast exam. C3-4 open central canal mild right foraminal narrowing. C4-5 mild central stenosis mild left foraminal narrowing. C5-6 mild to moderate central mild to moderate bilateral foraminal narrowing. C6-7 degenerative changes moderate central mild right severe left foraminal narrowing. C7-T1 open Assessment & Plan Post-op Postoperative Procedures: Procedures Operation Date: 03/17/20 07:45 Actual Procedures Side Surgeon p C3-4, C4-5, C5-6 ACDF w. anterior instrumentation Benedicto Schmid MD she is having weakness isolated only to the deltoid at this point. She is adequately decompressed on her CT scan. 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 These usually, but not always resolve on their own. No surgical indication as there is nothing to decompress along the C5 root on the right. This is something to treat with observation for now. She feels comfortable with mobility and going home today. We will discharge her.
[2020-03-19 09:00] VITALS: BP 133/70; PULSE 78; RESP 15; TEMP 36.3; O2SAT 95
[2020-03-19] MEDS: SOLIFENACIN 5 MG TABLET 10 MG PO (09:29)
[2020-03-19] MEDS: GABAPENTIN 300 MG CAPSULE PO (09:29)
[2020-03-19] MEDS: DOCUSATE 100 MG CAPSULE PO (09:29)
[2020-03-19] MEDS: carBAMazepine 200 MG TABLET 300 MG PO (09:29)
[2020-03-19] MEDS: BACLOFEN 10 MG TABLET 20 MG PO (09:29)
[2020-03-19] MEDS: ACYCLOVIR 400 MG TABLET PO (09:29)
--- NOTE | 2020-03-19 10:05 | PT.IPTN ---
Current Diagnoses Other spondylosis with myelopathy, cervical region (03/17/20) Spinal stenosis, cervical region (03/17/20) Surgery Performed Operation Date: 03/17/20 07:45 Actual Procedures p C3-4, C4-5, C5-6 ACDF w. anterior instrumentation - Benedicto Schmid MD Physical Therapy Treatment Note M2 PT-IP Current Condition Start: 03/18/20 11:55 Freq: NEEDED Status: Active Protocol: Document 03/18/20 09:15 AB (Rec: 03/18/20 12:06 AB [id number]) Physical Therapy Current Condition Current Condition Evaluation Date 03/18/20 Treatment Diagnosis s/p C3-6 ACDF; difficulty in walking Onset Date 03/17/20 Precautions Cervical Spine Precautions Soft Collar for Comfort,No Heavy Lifting,Log Roll M3 PT-IP Subjective Start: 03/18/20 11:55 Freq: NEEDED Status: Active Protocol: Document 03/19/20 09:48 CLB (Rec: 03/19/20 10:56 CLB [id number]) Subjective Physical Therapy Visit Type Type Treatment Note Visit Start Time 09:48 Visit Stop Time 10:05 Total Visit Minutes 17 Number of WHITE METAL CASTER Visits 1 Physical Therapy Visit Comments Patient Comments pt is agreeable to do PT Therapy Pain Assessment Pain When Pain Assessed At Rest Pain Present Pain Present Pain Reported Location neck Intensity 4 Scale Used increased to 9/10 with mobility Pain Management Techniques Apply Cold,Distraction,Timing of Activity with Medications M4 PT-IP Mobility and Gait Start: 03/18/20 11:55 Freq: NEEDED Status: Active Protocol: Document 03/19/20 09:48 CLB (Rec: 03/19/20 10:56 CLB [id number]) PT-Transfer Assessment Sit to and From Stand Sit to and from Stand Contact Guard Assistance,1 Person Assistance Equipment Transfer Assistive Device Gait Belt,Front Wheeled Walker Orthotic/Prosthetic Devices or Brace: No Transfer Ability Level of Assist Contact Guard Assistance Comments Mobility Comments Pt present for tx. Pt assist pt with donning of soft collar, socks and gait belt. Pt stood requiring CGA then ambulated in nj ~ 200ft w/FWW/SBA requiring two standing rest breaks. Pt climbed three steps with right ascending rail SBA after ~ 100ft of ambulation then ~ 100ft back to her room. Pt required SBA for stand-sit into chair. Pt educated on getting into and out of car for safety, pt questions about shower chair and HH shower head answered. Pt left in upright chair with present. RN informed of pt mobility. Gait Assessment Gait Gait Assistance Required: Standby Assistance Distance (Feet) 200 Able to Maintain Weight Bearing Status Yes During Gait Assistive Devices Assistive Device Gait Belt,Front Wheeled Walker Orthotic/Prosthetic Devices or Brace: No Gait Deviations General Gait Pattern Antalgic,Decreased Stride Length,Decreased Feet Clearance Factors Limiting Gait Function Factors Limiting Gait Function Decreased Activity Tolerance, Decreased Strength,Limited Range of Motion,Pain,Poor Balance,Poor Safety Awareness Comments Gait Comments Pt ambulated to steps ~100ft with one standing break, pt climbed stairs SBA then returned to room ~100ft with one standing rest break. Pt is SBA with use of FWW and assist with watching out for obstancles due to decreased visual field. Stair Climbing Assessment Evaluation Level of Assist On Stairs Standby Assistance,1 Person Assistance Devices Stair Climbing Assistive Devices Right Railing Technique/Endurance Stair Climbing Direction Ascend and Descend Stair Climbing Technique Step to Step Number of Steps Climbed 3 Stair Climbing Set # Repetitions (reps) 1 Comments Stair Climbing Comments pt used both hands on right rail going up sideways one step to step. M5 PT-IP Objective Assessments Start: 03/18/20 11:55 Freq: NEEDED Status: Active Protocol: Document 03/18/20 09:15 AB (Rec: 03/18/20 12:06 AB [id number]) Orientation Orientation/Cognition Level of Alertness Alert Orientation Name,Place,Situation Safety Awareness Understands Safety Issues Memory Description No Deficits Noted Gross Range of Motion Lower Extremity ROM Assessment Within Functional Limits Strength Comments Strength Comments LLE: 4-/5 RLE: 3+/5 Muscle Tone Muscle Tone WNL Yes M6 PT-IP Treatment Start: 03/18/20 11:55 Freq: NEEDED Status: Active Protocol: Document 03/18/20 14:40 AB (Rec: 03/18/20 16:12 AB [id number]) Physical Therapy Treatment Education Education Provided Precautions,Safety M7 PT-IP Assessment and Plan Start: 03/18/20 11:55 Freq: NEEDED Status: Active Protocol: Document 03/19/20 09:48 CLB (Rec: 03/19/20 10:56 CLB [id number]) PT Summary Assessment and Plan Summary Impairments Pain,ROM,Strength,Balance, Coordination,Sensation,Bed Mobility,Transfers,Gait, Activity Tolerance Progress Towards Goals Progressing Toward Goals Assessment Summary Pt able to ambulate with FWW/ SBA in nj ~200ft, climb stairs SBA. Pt able to assist pt with donning brace and providing SBA for all mobility. Goals Bed Mobility Goal Independent Transfer Goal Independent,Front Wheeled Walker Gait Goal Independent,Front Wheel Walker Gait Distance 150 Other Goals up/down 2 steps 1 rail SBA Days to Meet Goals 3 Frequency of Treatment Frequency Of Treatment Twice a Day Treatment Plan Physical Therapy Treatment Plan Bed Mobility Training,Transfer Training,Gait Training, Therapeutic Exercise,Balance Retraining,Post Op Education, Discharge Planning,Hot or Cold Pack,Neuromuscular Re-ed, Coordination Retraining,Manual Therapy Recommendations To Nursing Amount of Assist Needed 1 Person Assist Discharge Recommendations PT Discharge Recommendations Home with Assistance Transportation Needs at Discharge Private Vehicle
--- NOTE | 2020-03-19 11:28 | PC.NURSE ---
Addendum entered by Genevieve Dunlap R.N. 03/19/20 11:51: Patient educated and acknowledges understanding to all discharge instructions. Patient was wheeled to car via [employer] and home via private car with her . I gave patient her paper copies of her prescriptions. Original Note: Patient educated about medications/post op complications.
--- NOTE | 2020-03-24 11:17 | P.DS_ITS ---
History of Present Illness History of Present Illness Chief complaint: Cervical Fusion Anterior Discharge Providers Provider Date of admission: 03/17/20 05:45 Discharge Date: 03/19/20 Primary care physician: Keith Samano DO Consults: 03/17/20 12:46 Consult to Occupational Therapy Evaluate & Treat Comment: Physician Instructions: Evaluate and treat Consult to Physical Therapy Evaluate & Treat Comment: Physician Instructions: Evaluate and Treat Discharge provider: Benedicto Schmid MD Exam Vital Signs (past 8 hours): Oxygen Delivery Method Room Air Oxygen Flow Rate 0 Discharge Assessment & Plan Assessment and Plan Assessment: Ms. Martinez is a 64 yo F admitted on 7/ after having multiple level ACDF surgery. Patient has diagnosis of: 1. Cervical spinal stenosis 2. Cervical spondylosis with radiculopathy 3. Morbid obesity 4. Multiple sclerosis Patient's pain was well controlled on POD#1. Patient developed a right sided C5 nerve root palsy post operatively. Urgent CT c-spine was ordered and reviewed by me. Patient has normal post operative findings on the CT. Patient's neurologic structures were fully decompressed and there are no neuro compression seen on the CT and there are no hardware or other complications visualized. Steroid was administered to help relieving inflammation. Patient was kept for inpatient stay for another day to monitor her neurologic status. Plan of Treatment: Patient was discharged on POD#2. Patient was seen by Dr. Grossman, another spine surgeon. He explained to her the correlation of C5 nerve root palsy with multiple level cervical fusion surgery, which is a known perioperative complication post surgery. The [employer] of disc height along with recreation of cervical lordosis are the main mechanism for post operative C5 nerve palsy after ACDF surgery due to traction placed on the nerve roots. The treatment is monitoring the symptoms since almost all patients have full recovery from the nerve palsy with time. Patient understands and was discharged to home on POD#2 in stable condition. Patient is instructed to f/u in 2 weeks. Discharge Plan Discharge Plan Patient Disposition: Home Discharge comment: Follow-up 1.[address] Schmid Discharge orders & Medications Prescriptions: New oxycodone 5 mg tablet 5 mg PO Q4H PRN (Reason: pain) Qty: 50 RF: 0 hydroxyzine pamoate [Vistaril] 25 mg capsule 25 mg PO QID PRN (Reason: spasm and nausea) Qty: 30 RF: 0 Continued baclofen 20 mg Tablet 20 mg PO SEEINSTR RF: 0 acetaminophen [Acetaminophen Extra Strength] 500 mg Tablet 1,000 mg PO DAILY PRN (Reason: Pain) RF: 0 ibuprofen [Advil] 200 mg Tablet 400 mg PO DAILY PRN (Reason: Pain) RF: 0 melatonin 3 mg Tablet,Disintegrating 3 mg PO BEDTIME PRN (Reason: Sleep) RF: 0 diphenhydramine HCl [Benadryl] 25 mg Capsule 25 mg PO DAILY PRN (Reason: Itching) RF: 0 carbamazepine 100 mg tablet,chewable 300 mg PO BID RF: 0 gabapentin 300 mg capsule 300 mg PO BID-TID RF: 0 acyclovir 400 mg tablet 400 mg PO BID RF: 0 solifenacin 10 mg tablet 10 mg PO DAILY RF: 0 Follow up/Referrals: Keith Samano DO [Primary Care Provider] - Discharge Health Status Multidrug resistant organism: No MDRO Diet/Activity/Treatments Diet: Diet as Tolerated and Regular Activity: Limit bending and twisting Use c-collar as needed Skin/Wound/Dressing Care Report to your healthcare provider any signs of infection, such as:: chills, fever, night sweats, increased pain, unusual drainage and unusual redness Dressing: Keep dressing clean dry intact May shower with dressing kept dry Visit Report/Discharge Packet Instructions: DI for Prescription Opioid Use, DI for Anterior Cervical Discectomy and Fusion, Oxycodone, Hydroxyzine Stand Alone Forms: Surgery Discharge Visit Report Forms: Patient Portal/API, Stroke Signs & Symptoms Discharge Data Primary Care Provider: Keith Samano Discharges patient from system. Discharge Date/Time: 03/19/20 11:29
== END 2020-03-19 11:29 | disposition home or self-care (01) | DRG 472 ==
PROVIDERS: Admitting Provider Orthopaedic Surgery Orthopaedic Surgery of the Spine; PCP Family Medicine; Referring Provider Physical Medicine & Rehabilitation; Visit Provider Orthopaedic Surgery Orthopaedic Surgery of the Spine
PROC: 0RG20A0 Fusion of 2 or more Cervical Vertebral Joints with Interbody Fusion Device, Anterior Approach, Anterior Column, Open Approach (ICD-10-PCS; principal; 2020-03-17 07:45)
DX: M47.12 Other spondylosis with myelopathy, cervical region (principal); Z68.41 Body mass index [BMI] 40.0-44.9, adult; M48.02 Spinal stenosis, cervical region; E66.01 Morbid (severe) obesity due to excess calories; M47.22 Other spondylosis with radiculopathy, cervical region; M62.81 Muscle weakness (generalized); G35 Multiple sclerosis
CPT/HCPCS: 36592; 72040; 72125; 76000; 97116; 97162; 97165; 97530; 97535; C1776; J0131; J0690; J1100; J1170; J2405; J2704; J3010; J3360; J3410

== ENCOUNTER → 2021-11-07 13:20 | Outpatient (CLI) | payer MEDICARE, OTHER, SELFPAY ==
[2020-03-17 13:09] VITALS: BMI 40.7
--- NOTE | 2021-11-07 | DI.MG.S_ITS ---
BILATERAL DIGITAL DIAGNOSTIC MAMMOGRAM 3D/2D: 11/07/2021 CLINICAL: Mastodynia. Comparison is made to exams dated: 06/05/2020 mammogram, 06/16/2019 mammogram, and 11/19/2017 mammogram - . There are scattered fibroglandular elements in both breasts. No significant masses, calcifications, or other findings are seen in either breast. Specifically, no finding to explain the patient's pain. IMPRESSION: NEGATIVE There is no abnormality seen in either breast to correspond with the pain in the axillary tail. There is no mammographic evidence of malignancy. Return to annual mammogram screening schedule is recommended. Findings and recommendations were conveyed to the patient at time of exam. This exam was interpreted at Station ID: [id number]. NOTE: For mammograms, a report in lay terms will be sent to the patient. Approximately 15% of breast malignancies will not be visualized mammographically. In the management of a palpable breast mass, a negative mammogram must not discourage biopsy of a clinically suspicious lesion. Electronically Signed By: Ping becerril/:11/07/2021 14:10:59 letter sent: Normal Exam ACR BI-RADS Category 1: Negative [id number]
== END ==
PROVIDERS: PCP Family Medicine; Referring Provider Family Medicine; Visit Provider Family Medicine
DX: N64.4 Mastodynia (principal)
CPT/HCPCS: 77066; G0279

== ENCOUNTER → 2023-03-14 09:46 | Outpatient (CLI) | payer MEDICARE, OTHER, SELFPAY ==
[2020-03-17 13:09] VITALS: BMI 40.7
--- NOTE | 2023-03-14 10:06 | DI.CT.S_ITS ---
PROCEDURE: CT LUMBAR SPINE WO CON INDICATIONS: Spinal stenosis, lumbar region with neurogenic claudication TECHNIQUE: Noncontrast 3 mm thick sections acquired from the T12 level to the sacrum. Sagittal and coronal reformats were constructed. For radiation dose reduction, the following was used: automated exposure control. COMPARISON: None. FINDINGS: Image quality: Excellent. Bones: Grade 1 retrolisthesis of L1 on L2. Grade 1 anterolisthesis of L3 on L4 and L4 on L5. There is S-shaped curvature of the lumbar spine. Diffusely decreased osseous mineralization. Multilevel degenerative changes of the lumbar spine. Multilevel disc There is severe disc height loss L1-L2 and L5-S1 with vacuum disc phenomenon. Height loss. Multilevel facet hypertrophy. Anterior osteophyte formation. Endplate sclerosis, worse at L1-L2 and L5-S1. There is multilevel central canal stenosis, at least moderate at L1-L2 and L2-L3. Severe stenosis at L4-5. Multilevel osseous neural foraminal narrowing, worse on bilaterally at L1-L2 and L5-S1. Soft tissues: No retroperitoneal masses or hematomas. Visualized aorta is normal in caliber. Cholecystectomy clips. Atherosclerotic vascular calcifications. Renal cortical scarring. Fatty atrophy of the pancreas. Partially visualized lead in the subcutaneous tissues posterior to the sacrum. IMPRESSION: 1. Severe multilevel degenerative changes of the lumbar spine with diffusely decreased osseous mineralization. 2. Multilevel central canal stenosis, worse at L4-5 with likely severe stenosis. 3. Multilevel osseous neural foraminal narrowing, worse at L1-L2 and L5-S1. 4. If clinically indicated, these findings can be better evaluated by MRI. Dictated by: Maulik Freeman M.D. on 03/14/2023 at 11:14 Approved by: Maulik Freeman M.D. on 03/14/2023 at 11:19
== END ==
PROVIDERS: PCP Nurse Practitioner Family; Referring Provider Orthopaedic Surgery Orthopaedic Surgery of the Spine; Visit Provider Orthopaedic Surgery Orthopaedic Surgery of the Spine
DX: M48.062 Spinal stenosis, lumbar region with neurogenic claudication (principal); M48.07 Spinal stenosis, lumbosacral region; M47.816 Spondylosis without myelopathy or radiculopathy, lumbar region; M47.817 Spondylosis without myelopathy or radiculopathy, lumbosacral region
CPT/HCPCS: 72131

== ENCOUNTER → 2023-09-22 13:28 | Outpatient (CLI) | payer MEDICARE, OTHER, SELFPAY ==
[2020-03-17 13:09] VITALS: BMI 40.7
--- NOTE | 2023-09-22 13:31 | DI.NM.S_ITS ---
PROCEDURE: NM DAMIEN PERF SPECT R&S PHARM Rest and pharmacological stress myocardial perfusion SPECT with gated imaging and ejection fraction RADIOPHARMACEUTICAL: 26.2 mCi Tc-99m tetrafosmin IV at rest and 24.6 mCi Tc-99m tetrafosmin IV at peak effect of pharmacological stress. A [id number] was performed. INDICATIONS: Paroxysmal atrial fibrillation TECHNIQUE: Radiopharmaceutical was injected at peak stress test, and also at rest. SPECT images were obtained. SPECT myocardial perfusion images were displayed in short axis, horizontal long axis, and vertical long axis views. Gated images were reviewed using [employer] software. COMPARISON: None. CARDIAC STRESS: A pharmacologic stress test was performed under the supervision of an attending staff, using an infusion of regadenoson 0.4 mg IV. Hemodynamic data: There is normal blood pressure and heart rate response to pharmacologic stress. Symptoms: The patient denied anginal chest pain. EKG: No diagnostic changes of ischemia; no ectopy. FINDINGS: Raw data: There is good myocardial uptake of radiotracer. There is evidence of patient motion artifacts. Significant bowel uptake of the radiotracer also noted. Ffux-du-[id number] ratio is 0.37 (normal is less than 0.38 for tetrafosmin tracer). Left ventricle function: Gated images demonstrate mild global hypokinesis. No segmental wall motion abnormalities. No transient ischemic dilation; TID is 1.17 (normal less than 1.3). Left ventricle resting end diastolic volume is 158 mL. Left ventricle stress ejection fraction is calculated 45%; normal range is above 45%. Myocardial perfusion: There is a small size, mostly fixed distal inferior wall defect with possible blair-infarct ischemia at the apex. IMPRESSION: Likely low risk study. The small size, mostly fixed distal inferior wall defect may have a small area of associated blair-infarct ischemia at the apex however there is significant bowel uptake of the radiotracer near the inferior wall limiting interpretation. There is no obvious segmental wall motion abnormality in this area on gated imaging. Dilated left ventricle with mild global hypokinesis. Dictated by: Mayela Sharma D.O. on 09/23/2023 at 17:12 Approved by: Mayela Sharma D.O. on 09/23/2023 at 17:18
== END ==
PROVIDERS: PCP Nurse Practitioner Family; Referring Provider Nurse Practitioner; Visit Provider Nurse Practitioner
DX: I48.0 Paroxysmal atrial fibrillation (principal); R93.1 Abnormal findings on diagnostic imaging of heart and coronary circulation
CPT/HCPCS: 78452; 93017; A9502; J2785